=== PATIENT | female | born 1960 ===

== ENCOUNTER 2025-01-11 11:13 | Day surgery (SDC) | payer OTHER ==
[~2025-01-11] VITALS: Ht 165.1 cm; Wt 62.1 kg
[2025-01-11] MEDS ORDERED: CeFAZolin Sodium 2,000 MG VIAL ONE (11:16)
[2025-01-11] MEDS ORDERED: Rocuronium Bromide 10 MG/ML 5ML Injection IV ONE (11:33)
[2025-01-11] MEDS ORDERED: Midazolam HCl 1MG / ML 2ML Vial ONE (11:33)
[2025-01-11] MEDS ORDERED: Bupivacaine 0.5% HCl 5 MG/ML 30MLVIAL ONE (11:34)
[2025-01-11] MEDS ORDERED: LOSARTAN POT TAB 100 (11:44)
[2025-01-11] MEDS ORDERED: TRAZODONE TAB 50M (11:44)
[2025-01-11] MEDS ORDERED: FLUOXETINE (11:44)
--- NOTE | 2025-01-11 13:07 | NUR ---
01/11/25 1307 Katharina Cox TIME OUT PERFORMED AT BEDSIDE WITH DR ALVAREZ AT 1251. AXILLARY NERVE BLOCK STARTED AT 1254 AND ENDED AT 1256. SPO2 AND HR MONITORED THROUGHOUT. PT TOLERATED PROCEDURE WITHOUT ANY NOTED DIFFICULTIES.
[2025-01-11] MEDS ORDERED: Dexamethasone Sod Phos 10 MG/ML 1ML VIAL ONE (13:09)
[2025-01-11] MEDS ORDERED: Ondansetron HCl 2 MG / ML 2ML Vial ONE (13:09)
--- NOTE | 2025-01-11 15:08 | NUR ---
01/11/[address] CONSULTED REGARDING B/P. HE APPROVED D/C WITH CURRENT B/P AND RESUMPTION OF [place] AT HOME. PT WAS INSTRUCTED TO RESUME LOSARTAN AT HOME PERSCRIBED, MONITOR B/P AT HOME, AND FOLLOW UP WITH PCP IF NEEDED. PT DENIED CP, SOB, DIZZINESS, NAUSEA, JOHNSON, WEAKNESS, VISUAL DISTURBANCE, AND OTHER SYMPTOMS. SHE WAS INSTRUCTED TO SEEK EMERGENCY CARE IMMEDIATELY FOR THESE SYMPTOMS.
== END 2025-01-11 15:25 | disposition home or self-care (01) ==
LOC: ORSCSDS 11:13
PROVIDERS: Orthopaedic Surgery
PROC: 0RQS0ZZ Repair Right Carpometacarpal Joint, Open Approach (ICD-10-PCS; principal; 2025-01-11 13:15)
DX: M18.11 Unilateral primary osteoarthritis of first carpometacarpal joint, right hand (principal); I10 Essential (primary) hypertension; F32.A Depression, unspecified; Z79.899 Other long term (current) drug therapy
CPT/HCPCS: C1713; J0690; J1100; J2250; J2405; J7120